=== PATIENT | male | born 1995 ===

== ENCOUNTER 2023-06-02 12:04 | Observation (INO) | payer BC, SELFPAY ==
[2023-06-02 14:25] VITALS: BMI 31.7
[2023-06-02] MEDS ORDERED: Lorazepam 2 MG/ML VIAL IM PRN (14:45)
[2023-06-02] MEDS ORDERED: Electrolyte Replacement Protocol 1 EACH FS SCH (14:45)
[2023-06-02] MEDS ORDERED: Ondansetron ODT 4 MG TAB PO PRN ×2 (14:45→14:53)
[2023-06-02] MEDS ORDERED: Lorazepam 1 MG TAB PO PRN (14:45)
[2023-06-02] MEDS ORDERED: Acetaminophen 325 MG TAB PO PRN (14:45)
[2023-06-02] MEDS ORDERED: Ondansetron PF 4 MG/2 ML Vial IVP PRN (14:53)
[2023-06-02] MEDS ORDERED: Acetaminophen 650 MG Suppository PR PRN (14:53)
[2023-06-02] MEDS: Multivit, Therapeutic 1 TAB PO SCH (15:48)
[2023-06-02] MEDS: Thiamine HCl 200 MG/2 ML VIAL SLOW IVP SCH (15:48)
[2023-06-02] MEDS: Lorazepam 1 MG TAB PO SCH (15:49)
[2023-06-02 15:58] LABS: Lipase 400 U/L (8-78); Magnesium 1.6 mg/dL (1.6-2.6); Phosphorus 3.3 mg/dL (2.3-4.7)
[2023-06-02] MEDS ORDERED: Magnesium 2 GM/50 ML(in water) 2 GM in Premix 1 BAG IVPB SCH (16:00)
[2023-06-02] MEDS: Piperacillin/Tazobactam 3.375 GM in Sodium Chloride 0.9% 100 ML IVPB SCH ×2 (17:04→21:40)
[2023-06-02] MEDS: Magnesium 2 GM/50 ML(in water) 2 GM in Premix 1 BAG IVPB SCH (17:05)
[2023-06-02] MEDS: Potassium Chloride 20 MEQ TAB PO SCH (17:05)
[2023-06-02] MEDS: Folic Acid 1 MG TAB PO SCH (17:05)
[2023-06-02] MEDS: Sodium Chloride 0.9% 1,000 ML IV SCH (17:05)
[2023-06-02] MEDS: Famotidine/PF 20 mg/2ml Vial SLOW IVP SCH (21:40)
[2023-06-03 05:07] LABS: #Basophils 0.03 10x3/uL (0.0-0.2); #Eosinphils 0.13 10x3/uL (0.0-0.5); #Monocytes 0.57 10x3/uL (0.0-1.1); #Neutrophils 2.73 10x3/uL (1.5-8.4); %Basophils 0.5 % (0.0-2.0); %Eosinophils 2.2 % (0.0-6.0); %Lymphocytes 40.7 % (18.0-47.0); %Monocytes 9.7 % (0.0-10.0); %Neutrophils 46.7 % (40.0-75.0); Hematocrit 46.5 % (38.8-50.0); Hemoglobin 16.6 g/dL (13.5-17.5); Mean Corpuscular HGB CONC 35.7 g/dL (32.0-36.0); Mean Corpuscular Hemoglobin 34.3 pg (27.0-33.0); Mean Corpuscular Volume 96.1 fl (81.2-95.1); Mean Platelet Volume 10.4 fl (7.4-10.4); Platelet Count 217 10x3/uL (150-450); RBC Distribution Width 11.6 % (11.5-14.5); Red Blood Cell (RBC) Count 4.84 10x6/uL (4.32-5.72); White Blood Cell (WBC) Count 5.9 10x3/uL (3.5-10.5)
[2023-06-03 05:21] LABS: ALT (SGPT) 89 U/L (8-55); AST (SGOT) 74 U/L (5-34); Albumin 3.6 g/dL (3.5-5.0); Alkaline Phosphatase 103 U/L (40-110); Anion Gap 15 mmol/L (10-20); BUN (Urea Nitrogen) 4 mg/dL (8.9-20.6); Bilirubin, Total 1.4 mg/dL (0.2-1.2); Calc. Creatinine Clearance 179 mL/min (70-130); Calcium 8.9 mg/dL (7.8-10.44); Carbon Dioxide 23 mmol/L (22-29); Chloride 104 mmol/L (98-107); Estimated GFR 123; Globulin 3.3 g/dL (2.4-3.5); Glucose 99 mg/dL (70-105); Potassium 3.5 mmol/L (3.5-5.1); Protein, Total 6.9 g/dL (6.0-8.3); Sodium 138 mmol/L (136-145)
[2023-06-03] MEDS: Potassium Chloride 20 MEQ in Premix 1 BAG IVPB SCH (08:51)
[2023-06-03] MEDS: Magnesium 2 GM/50 ML(in water) 2 GM in Premix 1 BAG IVPB SCH (08:52)
[2023-06-03] MEDS: Enoxaparin 40 MG (0.4 mL) SYRINGE SC SCH (08:53)
[2023-06-03] MEDS: Multivit, Therapeutic 1 TAB PO SCH (08:54)
[2023-06-03] MEDS: Folic Acid 1 MG TAB PO SCH (08:54)
[2023-06-03] MEDS: Lorazepam 1 MG TAB PO PRN (12:00)
[2023-06-03 12:02] VITALS: BP 177/83; TEMP 98
[2023-06-04] MEDS ORDERED: Lorazepam 0.5 MG TAB PO SCH (14:45)
[2023-06-04] MEDS ORDERED: Lorazepam 1 MG TAB PO PRN (14:45)
[2023-06-05] MEDS ORDERED: Lorazepam 0.5 MG TAB PO PRN (14:45)
[2023-06-05] MEDS ORDERED: Thiamine 100 MG TAB PO SCH (16:00)
== END 2023-06-03 12:37 | disposition home or self-care (01) ==
LOC: CSHTELE 13:07
PROVIDERS: ADMIT Family Medicine; ATTEND Family Medicine
DX: K85.20 Alcohol induced acute pancreatitis without necrosis or infection (principal); F10.10 Alcohol abuse, uncomplicated; K70.10 Alcoholic hepatitis without ascites; E87.20 Acidosis, unspecified; E66.9 Obesity, unspecified; Z68.32 Body mass index [BMI] 32.0-32.9, adult; Z98.890 Other specified postprocedural states; F17.210 Nicotine dependence, cigarettes, uncomplicated
CPT/HCPCS: 36415; 80053; 83605; 83690; 83735; 84100; 85025; 87040; 93005; 93010; 94760; J2543; J3411; J3475; J3480; J3490; J7050; S0028